=== PATIENT | female | born 1980 | race Caucasian/White ===

== ENCOUNTER 2022-02-26 16:03 | Emergency (ER) | payer BC, OTHER ==
[~2022-02-26] VITALS: Ht 165.1 cm; Wt 81.5 kg
[2022-02-26 16:11] VITALS: BP 123/80
[2022-02-26] MEDS ORDERED: IBUP-2029 MT (18:38)
[2022-02-26] MEDS ORDERED: IBUPROFEN 600MG TABLET PO ONE (18:45)
== END 2022-02-26 18:52 | disposition home or self-care (01) ==
LOC: ER 16:13
DX: S83.8X1A Sprain of other specified parts of right knee, initial encounter (principal); X58.XXXA Exposure to other specified factors, initial encounter; Y93.89 Activity, other specified; Y92.89 Other specified places as the place of occurrence of the external cause
CPT/HCPCS: 73560; 99283